=== PATIENT | female | born 1965 | race Caucasian/White ===

== ENCOUNTER → 2023-10-13 10:36 | Outpatient (REF) | payer OTHER, SELFPAY | LOC: HWWDC 10:36 | PROVIDERS: ATTENDING PHYSICIAN Internal Medicine | DX: E04.2 Nontoxic multinodular goiter (principal); Z87.891 Personal history of nicotine dependence; Z12.31 Encounter for screening mammogram for malignant neoplasm of breast | CPT/HCPCS: 71271; 76536; 77063; 77067 ==

== ENCOUNTER → 2024-08-21 15:25 | Outpatient (REF) | payer OTHER, SELFPAY | LOC: HWRAD 15:25 | PROVIDERS: ATTENDING PHYSICIAN Physician Assistant Medical; FAMILY PHYSICIAN Family Medicine | DX: J01.00 Acute maxillary sinusitis, unspecified (principal); J98.01 Acute bronchospasm | CPT/HCPCS: 71046 ==

== ENCOUNTER 2024-09-28 16:57 | Emergency (ER) | payer OTHER, SELFPAY ==
[2024-09-28 17:13] VITALS: BP 110/76
[2024-09-28 17:39] LABS: Hematocrit 44.6 % (37.0-47.0); Hemoglobin 15.5 g/dL (12.0-16.0); Mean Corp Hgb Conc. 34.8 g/dL (33.0-37.0); Mean Corpuscular Volume 88.3 fL (81.0-99.0); Nucleated Red Blood Cells % 0 %; Platelet Count 253 10^3/uL (130-400); Red Cell Dist. Width 12.7 % (11.5-14.5)
[2024-09-28 17:48] LABS: Urine Character Clear (Clear)
[2024-09-28 17:53] LABS: ALT (SGPT) 14 U/L (0-35); AST (SGOT) 18 U/L (14-36); Albumin 4.6 g/dl (3.5-5.0); Alkaline Phosphatase 86 U/L (38-126); Blood Urea Nitrogen 14 mg/dl (7-17); Calcium 9.2 mg/dl (8.4-10.2); Carbon Dioxide 24 mmol/L (22-30); Chloride 104 mmol/L (98-107); Glucose 119 mg/dl (70-99); Potassium 5.1 mmol/L (3.5-5.1); Sodium 136 mmol/L (135-145); Total Protein 7.8 g/dl (6.3-8.2); eGFR > 60.00
[2024-09-28 17:55] LABS: Lipase 93 U/L (23-300)
--- NOTE | 2024-09-28 20:57 | ED.GENMED ---
History of Present Illness
<DO Avinash Escobar Last Filed: 09/28/24 20:58>
General
Chief Complaint: Abdominal Pain
Source: patient
Time Seen by Provider: 09/28/24 20:18
History of Present Illness
History of Present Illness:
59-year-old female presents to the emergency room complaining of lower abdominal pain. Symptoms began yesterday. Patient initially thought the discomfort could be related to the fact she dramatically increased her fiber intake. She did this after
receiving her cholesterol results. However the pain did not improve even after having adequate bowel movements. Pain is worse with movement today. No fever or chills. Patient has had an appendectomy in the past but no other abdominal operations.
Past History
<DO Avinash Escobar Last Filed: 09/28/24 20:58>
Past History
ED Past Medical History: None
ED Past Surgical History: Appendectomy
Social History
Tobacco: Smoker
Alcohol: None
Personal:
Living: with family
Employment: Employed
Phy Exam
<DO Avinash Escobar Last Filed: 09/28/24 20:58>
Physical Exam
Physical Exam:
General: Awake, Alert, Oriented X3. No acute distress.
Vitals: unremarkable
Head: Atraumatic
Eyes: Pupils equal, EOMI
Throat: Airway intact, no exudates
Neck: Trachea midline
Lungs: Clear and equal b/l
Heart: Regular rate, no murmurs
Abd: Soft, moderate suprapubic and left lower quadrant tenderness r, No pulsatile mass
Neuro: Nonfocal
Skin: Warm, dry, no rash
Extremities: pulses equal b/l, no edema
Course
<DO Avinash Escobar Last Filed: 09/28/24 20:58>
Orders/Labs/Results
Orders:
Orders
09/28/24 17:23
Complete Blood Count/With Diff Urgent
Comprehensive Metabolic Panel Urgent
Lipase Urgent
Urinalysis Reflex To Culture Urgent
Date Specimen was Collected: 09/28/24
Time Specimen was Collected: 17:16
09/28/24 20:55
Ketorolac [Toradol] 15 mg IV NOW STA
09/28/24 20:56
CT Abd/Pel (IV only)-DH only Urgent
Comment:
Reason For Exam: lower abd pain
09/29/24 01:05
LevoFLOXacin [Levaquin] 500 mg PO NOW STA
MetroNIDAZOLE [Flagyl] 250 mg PO NOW STA
Abnormal Lab Results
09/28/24
17:23
WBC 19.1 H 10^3/uL
(4.8-10.8)
MPV 12.1 H fL
(7.4-10.4)
Abs Immat Gran (auto) 0.1 H 10^3/uL
(0-0.05)
Absolute Neuts (auto) 14.0 H 10^3/uL
(1.4-6.5)
Absolute Monos (auto) 1.9 H 10^3/uL
(0.1-0.6)
Lymphocytes % 13.8 L %
(20.5-51.1)
Monocytes % 9.7 H %
(1.7-9.3)
Glucose 119 H mg/dl
(70-99)
09/28/24 17:23
09/28/24 17:23
Vital Signs
Initial and Last Documented VS:
Initial Vital Signs
Temp Pulse Resp BP Pulse Ox
99.1 F 87 16 110/76 98
09/28/24 17:13 09/28/24 17:13 09/28/24 17:13 09/28/24 17:13 09/28/24 17:13
Last Documented Vital Signs
Temp Pulse Resp BP Pulse Ox
99.1 F 87 16 110/76 98
09/28/24 17:13 09/28/24 17:13 09/28/24 17:13 09/28/24 17:13 09/28/24 20:58
<Dilan Nicolas, DO - Last Filed: 09/29/24 01:22>
Orders/Labs/Results
Orders:
Orders
09/28/24 17:23
Complete Blood Count/With Diff Urgent
Comprehensive Metabolic Panel Urgent
Lipase Urgent
Urinalysis Reflex To Culture Urgent
Date Specimen was Collected: 09/28/24
Time Specimen was Collected: 17:16
09/28/24 20:55
Ketorolac [Toradol] 15 mg IV NOW STA
09/28/24 20:56
CT Abd/Pel (IV only)-DH only Urgent
Comment:
Reason For Exam: lower abd pain
09/29/24 01:05
LevoFLOXacin [Levaquin] 500 mg PO NOW STA
MetroNIDAZOLE [Flagyl] 250 mg PO NOW STA
Abnormal Lab Results
09/28/24
17:23
WBC 19.1 H 10^3/uL
(4.8-10.8)
MPV 12.1 H fL
(7.4-10.4)
Abs Immat Gran (auto) 0.1 H 10^3/uL
(0-0.05)
Absolute Neuts (auto) 14.0 H 10^3/uL
(1.4-6.5)
Absolute Monos (auto) 1.9 H 10^3/uL
(0.1-0.6)
Lymphocytes % 13.8 L %
(20.5-51.1)
Monocytes % 9.7 H %
(1.7-9.3)
Glucose 119 H mg/dl
(70-99)
09/28/24 17:23
09/28/24 17:23
Vital Signs
Initial and Last Documented VS:
Initial Vital Signs
Temp Pulse Resp BP Pulse Ox
99.1 F 87 16 110/76 98
09/28/24 17:13 09/28/24 17:13 09/28/24 17:13 09/28/24 17:13 09/28/24 17:13
Last Documented Vital Signs
Temp Pulse Resp BP Pulse Ox
99.1 F 87 16 110/76 98
09/28/24 17:13 09/28/24 17:13 09/28/24 17:13 09/28/24 17:13 09/28/24 20:58
<Bonifacio Montes, DO - Last Filed: 09/28/24 20:58>
*Pulse Oximetry
SaO2: 98
<Dilan Nicolas, DO - Last Filed: 09/29/24 01:22>
*Pulse Oximetry
Patient hypoxic: no
*Critical Care Note
Total Time (30-74mins, 75-104mins- exclusive of procedures): Not Applicable
<Dilan Nicolas, DO - Last Filed: 09/29/24 01:22>
Update Note
Update Note:
Evening ER attending
1 AM, signout pending CAT scan, CAT scan noted, patient appears comfortable stable for outpatient treatment
ED Attending Note
<Bonifacio Montes, DO - Last Filed: 09/28/24 20:58>
-
Portions of this chart may have been created with voice recognition software.� Occasional wrong word or��sound alike� substitutions may have occurred due to the inherent limitations of voice recognition software.
Discharge Plan
Departure
Patient Disposition: Home (Routine Discharge)
Date of Disposition: 09/29/24
Time of Disposition: 01:06
Patient with high blood pressure during this ER visit?: No
Condition: Good
Discharge Problem:
Diverticulitis
Instructions: Diverticulitis (DC)
Prescriptions:
New
metronidazole 250 mg tablet
250 mg PO Q8H Qty: 10 0RF
levofloxacin 500 mg tablet
500 mg PO DAILY 10 Days Qty: 10 0RF
No Action
No Current Medications
clindamycin HCl 300 MG capsule
300 mg PO TID Qty: 30 0RF
cyclobenzaprine 10 MG tablet
10 mg PO TIDPRN PRN (Reason: low back pain/spasm) Qty: 15 0RF
prednisone 20 MG tablet
40 mg PO DAILY Qty: 8 0RF
Referrals:
Memo Hoyt DO [Family Provider, Family Practice]
Narendra Mendenhall MD [Active, Gastroenterology] - Next open appointment
Interventions
Interventions:
*Risk Screen - Suicide Last Done: 09/28/24 17:13
*General Assessment Last Done: 09/29/24 00:10
*Neglect/Abuse Screening Last Done: 09/28/24 17:13
*ED- Fall Risk Assessment Last Done: 09/28/24 17:13
RE-Iodwnz-Pdgjamcaum Assessment Last Done: 09/29/24 00:10
Discharge Date and Time
Print Language: [place]
[2024-09-28] MEDS: TORADOL 15 MG IV (21:19)
[2024-09-29] MEDS: FLAGYL 500 MG PO (01:36)
[2024-09-29] MEDS: LEVAQUIN 500 MG PO (01:37)
== END 2024-09-29 01:38 | disposition home or self-care (01) ==
LOC: EMR 16:57
PROVIDERS: Emergency Medicine; EMERGENCY PHYSICIAN Emergency Medicine; FAMILY PHYSICIAN Family Medicine
DX: K57.32 Diverticulitis of large intestine without perforation or abscess without bleeding (principal); F17.200 Nicotine dependence, unspecified, uncomplicated; Z90.49 Acquired absence of other specified parts of digestive tract
CPT/HCPCS: 99284; 96374; 74177; 80053; 81003; 83690; 85025; Q9967

== ENCOUNTER → 2024-12-05 09:02 | Outpatient (REF) | payer OTHER, SELFPAY | LOC: HWRAD 09:02 | PROVIDERS: ATTENDING PHYSICIAN Family Medicine | DX: Z87.891 Personal history of nicotine dependence (principal) | CPT/HCPCS: 71271 ==

== ENCOUNTER → 2025-01-15 16:45 | Outpatient (REF) | payer OTHER, SELFPAY | LOC: WDC 16:45 | PROVIDERS: ATTENDING PHYSICIAN Family Medicine | DX: Z12.31 Encounter for screening mammogram for malignant neoplasm of breast (principal) | CPT/HCPCS: 77063; 77067 ==

== ENCOUNTER → 2025-02-26 07:00 | Outpatient (REF) | payer OTHER, SELFPAY ==
[2025-02-26 09:47] LABS: HDL Cholesterol 58 mg/dl; LDL Cholesterol, Calculated 162 mg/dl; Very Low Density Lipoprotein 15 mg/dl (0-30)
== END ==
LOC: RAD 07:00
PROVIDERS: ATTENDING PHYSICIAN Student in an Organized Health Care Education/Training Program; FAMILY PHYSICIAN Family Medicine
DX: R29.898 Other symptoms and signs involving the musculoskeletal system (principal); Z72.0 Tobacco use; E78.2 Mixed hyperlipidemia
CPT/HCPCS: 36415; 80061; 93922